=== PATIENT | male | born 1950 | race Caucasian/White ===

== ENCOUNTER 2020-08-20 17:47 | Emergency (ER) | payer MEDICARE ==
[~2020-08-20] VITALS: Ht 175.3 cm; Wt 97.7 kg
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
--- NOTE | 2020-08-20 18:00 | NUR ---
Dr. Bloom has been to bedside for eval
--- NOTE | 2020-08-20 18:30 | NUR ---
pt has been given warm blankets and positioning for comfort awaiting orders
--- NOTE | 2020-08-20 18:40 | NUR ---
pt aware urien sample needed. urinal given. pt reports that he is unable to provide urine sample at this time
--- NOTE | 2020-08-20 18:45 | NUR ---
lab at bedside to draw
[2020-08-20] MEDS ORDERED: SODIUM CHLORIDE 0.9% 1,000ML IVBOLUS ONE (19:00)
[2020-08-20] MEDS ORDERED: SODIUM CHLORIDE FLUSH 10ML SYR IVF ONE (19:00)
[2020-08-20] MEDS ORDERED: ONDANSETRON 2MG/ML, 2ML IVPush ONE (19:00)
[2020-08-20] MEDS ORDERED: PLEASE ENTER ALLERGIES MC SCH (19:00)
--- NOTE | 2020-08-20 19:08 | NUR ---
RECEIVED BS REPORT FROM NASEEM DANG TO ASSUME CARE OF PT. PT. RESTING ON GURNEY WITH NO DISTRESS NOTED. C/O MILD ABD PAIN "BECAUSE OF ALL THE DRY HEAVING I HAVE BEEN DOING." DENIES FURHTER DISCOMFORT. DENIES NAUSEA A THIS TIME. ALL MONIOTRS IN PLACE, ALL SAFETY MEASURES OBSERVED.
--- NOTE | 2020-08-20 19:08 | NUR ---
report to Stacia GUSMAN and Mu GUSMAN. pt resting in position of comfort
[2020-08-20 19:15] LABS: ALANINE AMINOTRANSFERASE 18 U/L (12-78); ALBUMIN 2.9 g/dL (3.4-5.0); ANION GAP 10 mmol/L (5-15); BASOPHILS % (AUTO) 1 % (0-1); CALCIUM 8.6 mg/dL (8.5-10.1); CHLORIDE 100 mmol/L (98-107); CREATININE 2.53 mg/dL (0.7-1.3); EOSINOPHILS % (AUTO) 2 % (1-7); LYMPHOCYTES % (AUTO) 9 % (22-44); MEAN CORPUSCULAR HEMOGLOBIN 21.5 pg (27.5-34.5); MEAN CORPUSCULAR HGB CONC 32.2 g/dL (33.2-36.2); MEAN PLATELET VOLUME 7.7 fL (7.4-10.4); MONOCYTES % (AUTO) 7 % (2-9); NEUTROPHILS % (AUTO) 80 % (42-75); PLATELET COUNT 613 x10^3/uL (130-400); RED BLOOD COUNT 3.92 x10^6/uL (4.38-5.82); RED CELL DISTRIBUTION WIDTH 16.8 % (9.4-14.8)
[2020-08-20 19:20] LABS: ALKALINE PHOSPHATASE 211 U/L (45-117); BILIRUBIN,TOTAL 0.6 mg/dL (0.2-1.0); TOTAL PROTEIN 8.2 g/dL (6.4-8.2)
[2020-08-20] MEDS ORDERED: ONDANSETRON 2MG/ML, 2ML ONE (19:20)
--- NOTE | 2020-08-20 19:24 | NUR ---
PT. MEDICATED FOR NAUSEA PER MAR. REQUESTING FOOD/WATER. PER DR. BRYSON PETTIT FOR PT. TO HAVE BROTH AND WATER PER REQUEST. PROVIDED TO PT.
[2020-08-20 19:34] LABS: MD MORPH REVIEW ONLY
[2020-08-20 19:35] LABS: ANISOCYTOSIS 1+; MICROCYTOSIS 1+
[2020-08-20 19:36] LABS: ACETONE, SERUM Negative (Negative); OVALOCYTES 1+; POLYCHROMASIA 1+
[2020-08-20 19:37] LABS: SCHISTOCYTES 1+
[2020-08-20 19:38] LABS: <PLATELET ESTIMATE> INCREASED; STOMATOCYTES 1+
[2020-08-20 19:39] LABS: HYPOCHROMIA 2+
[2020-08-20 19:45] LABS: <PLT MORPHOLOGY> NORMAL PLT MORPH
[2020-08-20] MEDS ORDERED: POTASSIUM CHLORIDE 20 MEQ TAB.ER.PRT PO ONE (20:00)
[2020-08-20] MEDS ORDERED: POTASSIUM CHLORIDE 20 MEQ TAB.ER.PRT ONE (20:08)
--- NOTE | 2020-08-20 20:50 | NUR ---
PT. PROVIDED WITH MORE CHICKEN BROTH PER REQUEST. PT. DENIES OTHER NEEDS. PT. CONTINUES TO STATE "I AM NOT GOING TO BE ABLE TO PEE FOR AWHILE." NS BOLUS NEARLY COMPLETED; FLOWING WELL.
[2020-08-20 21:48] VITALS: BP 119/60
== END 2020-08-20 21:49 | disposition home or self-care (01) ==
LOC: ED 18:24
DX: E11.22 Type 2 diabetes mellitus with diabetic chronic kidney disease (principal); N18.9 Chronic kidney disease, unspecified; D63.1 Anemia in chronic kidney disease; R53.1 Weakness; E87.6 Hypokalemia; R06.89 Other abnormalities of breathing; K21.9 Gastro-esophageal reflux disease without esophagitis; E78.00 Pure hypercholesterolemia, unspecified
CPT/HCPCS: 36415; 71045; 80053; 82010; 82800; 83690; 83880; 85025; 96361; 96374; 99285; J2405; J7030

== ENCOUNTER 2020-09-19 12:03 | Day surgery (SDC) | payer MEDICARE ==
[~2020-09-19] VITALS: Ht 175.3 cm; Wt 95.2 kg
[~2020-09-19 12:03] MED LIST: ALPR0.5T5 PO; AMLO-211 PO; ATOR40TA78 PO; BENZ-17 PO; BUPR-86 PO; FERR-51 PO; FLUT9.9S INH; GABA300C PO; INSU100V8 SQ; LOSA1TAB25 PO; MELA5TAB14 PO; OMEP-110 PO; OXYC5TAB2 PO; OXYC5TAB98 PO; PIOG30TA67 PO
[2020-09-19] MEDS ORDERED: CEFAZOLIN PMX 1GM/50ML 50 ML IV ONE (12:30)
[2020-09-19] MEDS ORDERED: CHLORHEXIDINE 15 ML UDC PO ONE (12:30)
[2020-09-19] MEDS ORDERED: SODIUM CHLORIDE 0.9% 1,000 ML IV SCH (12:30)
[2020-09-19] MEDS ORDERED: CEFAZOLIN PMX 1GM/50ML 50 ML ONE (12:36)
[2020-09-19 12:42] VITALS: BP 110/70
[2020-09-19] MEDS ORDERED: LIDOCAINE 1%, 20ML ONE (12:48)
[2020-09-19] MEDS ORDERED: FENTANYL PF 100 MCG/2ML ONE (13:20)
[2020-09-19] MEDS ORDERED: MIDAZOLAM 1 MG/ML, 5ML ONE (13:20)
[2020-09-19] MEDS ORDERED: NALOXONE 1 MG/ML, 2ML ONE (13:20)
[2020-09-19] MEDS ORDERED: FLUMAZENIL 0.1 MG/1 ML, 5ML ONE (13:20)
[2020-09-19] MEDS ORDERED: ONDANSETRON 2MG/ML, 2ML ONE (13:47)
== END 2020-09-19 15:35 | disposition home or self-care (01) ==
LOC: RAD 12:03
PROVIDERS: ATTEND Internal Medicine Hematology & Oncology
DX: C18.2 Malignant neoplasm of ascending colon (principal); C78.7 Secondary malignant neoplasm of liver and intrahepatic bile duct; D50.9 Iron deficiency anemia, unspecified; I10 Essential (primary) hypertension; E11.9 Type 2 diabetes mellitus without complications; Z79.4 Long term (current) use of insulin; Z79.899 Other long term (current) drug therapy
CPT/HCPCS: 36561; 76937; 77001; 82962; 99156; 99157; C1788; J0690; J1642; J2250; J2405; J3010; J7030; J2310